=== PATIENT | male | born 1945 | race Caucasian/White ===

== ENCOUNTER 2021-08-03 12:35 | Outpatient (CLI) | payer MEDICARE ==
[2021-08-03 13:51] LABS: #Basophils 0.1 10x3/uL (0.0-0.2); #Eosinphils 0.1 10x3/uL (0.0-0.5); #Monocytes 0.5 10x3/uL (0.0-1.1); %Basophils 0.6 % (0.0-2.0); %Lymphocytes 28.7 % (18.0-47.0); %Neutrophils 63.2 % (40.0-75.0); Anion Gap 12 mmol/L (10-20); BUN (Urea Nitrogen) 17 mg/dL (8.4-25.7); Calc. Creatinine Clearance 0 mL/min (70-130); Calcium 9.1 mg/dL (7.8-10.44); Carbon Dioxide 28 mmol/L (23-31); Chloride 105 mmol/L (98-107); Glucose 128 mg/dL (83-110); Hemoglobin 13.8 g/dL (13.5-17.5); Mean Corpuscular HGB CONC 33.4 g/dL (32.0-36.0); Mean Corpuscular Hemoglobin 32.2 pg (27.0-33.0); Mean Corpuscular Volume 96.5 fl (81.2-95.1); Mean Platelet Volume 9.7 fl (7.4-10.4); Platelet Count 192 10x3/uL (150-450); Potassium 4.5 mmol/L (3.5-5.1); RBC Distribution Width 12.9 % (11.5-14.5); Red Blood Cell (RBC) Count 4.28 10x6/uL (4.32-5.72); Sodium 140 mmol/L (136-145); White Blood Cell (WBC) Count 7.9 10x3/uL (3.5-10.5)
[2021-08-04 10:23] LABS: SARS-CoV-2 PCR by NAA Not Detected (NotDetected)
== END 2021-08-03 12:36 | disposition home or self-care (01) ==
LOC: LABBT 12:35
PROVIDERS: ATTEND Internal Medicine Cardiovascular Disease
DX: Z01.812 Encounter for preprocedural laboratory examination (principal); Z20.822 Contact with and (suspected) exposure to COVID-19
CPT/HCPCS: 80048; 85025; U0003; U0005

== ENCOUNTER → 2021-08-05 | Day surgery (SDC) | payer MEDICARE ==
[2021-08-04 09:32] VITALS: BMI 29.1
[~2021-08-05] MED LIST: CEFAZOLIN 1 GM VIAL ONE; Fentanyl 100 MCG/2 ML VIAL ONE; Gentamicin 80 MG/2 ML VIAL ONE; Iopamidol 370 76% 50 ML VIAL FS ONE; Lidocaine 1% (PF) 30 ML VIAL ONE; Midazolam HCl 2 mg/2 ml Vial ONE; ceFAZolin 2 GM/DEX 5% 100 ML BAG ONE
== END ==
LOC: SDC 06:25
PROVIDERS: ATTEND Internal Medicine Cardiovascular Disease
PROC: 0JH606Z Insertion of Pacemaker, Dual Chamber into Chest Subcutaneous Tissue and Fascia, Open Approach (ICD-10-PCS; principal; 2021-08-05)
PROC: 02H63JZ Insertion of Pacemaker Lead into Right Atrium, Percutaneous Approach (ICD-10-PCS; 2021-08-05)
PROC: 02HK3JZ Insertion of Pacemaker Lead into Right Ventricle, Percutaneous Approach (ICD-10-PCS; 2021-08-05)
DX: R00.1 Bradycardia, unspecified (principal); I48.91 Unspecified atrial fibrillation; E78.00 Pure hypercholesterolemia, unspecified; Z79.01 Long term (current) use of anticoagulants; Z79.82 Long term (current) use of aspirin; Z79.899 Other long term (current) drug therapy
CPT/HCPCS: 33208; 71045; 93005; C1785; C1898 ×2; 99152; 99153; J0690; J1580; J2001; J2250; J3010; Q9967